=== PATIENT | female | born 1995 | race Caucasian/White ===

== ENCOUNTER 2017-04-05 22:00 | Emergency (ER) | payer SELFPAY ==
[~2017-04-05] VITALS: Ht 170.2 cm; Wt 59.9 kg
[~2017-04-05 22:00] MED LIST: AZIT-21 PO; CETI10TA17 PO; DIVA500T PO; DOXY100C2 PO; FAMO-119 PO; HYDR-3454 PO; LAMO100T PO; LAMO25TA PO; LEVO75TA6 PO; NATALCARE PLUS1 EACH PO; NF-VYVAN20 PO; OMEP20CA12
--- OUTSIDE RECORDS SUMMARY | 2017-04-05 22:07 | XMS REPORT | CCD ---
Author Author Auto Generated Organization [facility] Address Unknown Phone Unavailable Care Team Providers Care Paramedic Instructor Name Role Phone Casimiro Gaspar CP [phone] ContrerasFrancine PP [phone] Allergies, Adverse Reactions, Alerts Substance Reaction Status No Known Adverse Reactions Active Problem List Condition Effective Dates Status Autoimmune hypothyroidism Resolved Medications Medication Instructions Start Date End Date Status clobetasol 0.05% 1 application, Affected Area(s), 04/09/2015 Ordered topical solution BID, Apply a thin film to affected areas Tuesday-Tuesday., # 50 mL, Refill(s) 3, Pharmacy: [facility] Apply a thin film to affected areas Tuesday-Tuesday. Vital Signs Most recent to oldest [Reference Range]: 1 Current Weight 54.7 kg (04/09/2015 13:22:00) Most recent to oldest [Reference Range]: 1 Height/Length 170 cm (04/09/2015 13:22:00) Procedures Procedures Date Related Diagnosis Lymph node biopsy 2014
--- OUTSIDE RECORDS SUMMARY | 2017-04-05 22:07 | XMS REPORT | CCD ---
Author Author Auto Generated Organization [facility] Address Unknown Phone Unavailable Care Team Providers Care Subsurface Augmentee Elint Operator Name Role Phone Casimiro Gaspar CP [phone] Francine Contreras PP [phone] Allergies, Adverse Reactions, Alerts Substance Reaction Status No Known Adverse Reactions Active Problem List Condition Effective Dates Status Autoimmune hypothyroidism Resolved Medications Medication Instructions Start Date End Date Status clobetasol 0.05% 1 application, Affected Area(s), 04/09/2015 Ordered topical solution BID, Apply a thin film to affected areas Tuesday-Tuesday., # 50 mL, Refill(s) 3, Pharmacy: [facility] Apply a thin film to affected areas Tuesday-Tuesday.
--- OUTSIDE RECORDS SUMMARY | 2017-04-05 22:07 | XMS REPORT | CCD ---
Author Author Auto Generated Organization [facility] Address Unknown Phone Unavailable Care Team Providers Care Travel Accommodation Inspector Name Role Phone Mihir Capps CP [phone] Francine Contreras PP [phone] Brandon Cohen RP [phone] Allergies, Adverse Reactions, Alerts Substance Reaction Status No Known Adverse Reactions Active Medications Medication Instructions Start Date End Date Status multivitamin Refill(s) 0 03/19/2015 Ordered Rexulti Rexulti, 0.25 mg, qDay 03/19/2015 Ordered Vyvanse 40 mg oral 40 mg=1 capsule, PO, qAM, Take with 03/19/2015 Ordered capsule food., # 30 capsule, Refill(s) 0 Take with food. potassium chloride 10 mEq=1 tablet, PO, qDay, # 30 03/19/2015 Ordered 10 mEq oral tablet, tablet, Refill(s) 0 extended release traZODone 100 mg 1/2 tablet, PRN, Refill(s) 0 03/19/2015 Ordered oral tablet PRN levothyroxine 75 mcg 75 mcg=1 tablet, PO, qDay, # 30 03/19/2015 Ordered (0.075 mg) oral tablet, Refill(s) 0 tablet
--- OUTSIDE RECORDS SUMMARY | 2017-04-05 22:07 | XMS REPORT | Continuity of Care Document ---
Author Author [employer] Organization [employer] Address Unknown Phone Unavailable Care Team Providers Care Crawler Crane Operator Name Role Phone [employer] Unavailable Unavailable Problems Problem Status Onset Date Classification Date Reported Comments Source Autoimmune hypothyroidism (disorder) Resolved Problem [facility] Medications Medication Details Route Status Patient Instructions Ordering Provider Order Date Source multivitamin Refill(s) 0 [facility] Rexulti Rexulti, 0.25 mg, qDay [facility] Vyvanse 40 mg oral capsule 40 mg=1 capsule, PO, qAM, Take with food., # 30 capsule, Refill(s) 0 Take with food. Active [facility] potassium chloride 10 mEq oral tablet, extended release 10 mEq=1 tablet, PO, qDay, # 30 tablet, Refill(s) 0 [facility] traZODone 100 mg oral tablet 1/2 tablet, PRN, Refill(s ) 0 PRN [facility] levothyroxine 75 mcg (0.075 mg) oral tablet 75 mcg=1 tablet, PO, qDay, # 30 tablet, Refill(s) 0 [facility] clobetasol 0.05% topical solution 1 application, Affected Area(s), BID, Apply a thin film to affected areas Tuesday-Tuesday., # 50 mL, Refill(s) 3, Pharmacy: [facility] 72 Apply a thin film to affected areas Tuesday-Tuesday. [facility] Allergies, Adverse Reactions, Alerts Immunizations Results Order Name Results Value Reference Range Date Interpretation Comments Source Thyrd Ab Thyroid Globulin Ab 25 International Unit/mL 0 - 40 03/20/2015 NA [facility] Thyrd Ab Thyroid Peroxidase Ab 301 International Unit/mL 0 - 35 03/20/2015 [facility] T4 Free T4 Free 1.0 ng/dL 0.8 - 1.9 03/20/2015 [facility] TSH TSH 2.60 mcIU/mL 0.35 - 5.50 03/20/2015 [facility] Sodium 140 mmol/L 135 - 145 03/19/2015 [facility] Potassium 4.0 mmol/L 3.5 - 5.2 03/19/[address] [facility] Chloride 101 mmol/L 99 - 112 03/19/2015 [facility] Carbon Dioxide 28 mmol /L 20 - 30 03/19/2015 [facility] Anion Gap 11 mmol/L 7 - 14 03/19/2015 [facility] Calcium 9.3 mg/dL 8.6 - 10.5 03/19/2015 [facility] Glucose 81 mg/dL 65 - 110 03/19/2015 [facility] BUN 12 mg/dL 5 - 20 03/19/2015 [facility] Creatinine .58 mg/dL .35 - .84 03/19/2015 [facility] Vital Signs Vital Sign Value Date Comments Source Current Weight 54.7 kg 2015 [facility] Height/Length 170 cm 2015 [facility] Encounters Location Location Details Encounter Type Encounter Number Reason For Visit Attending Provider ADM Date DC Date Status Source [facility] REF [id number] Mihir Capps 03/19/20152015 [facility] CMB CMB CLI [id number] Casimiro aGspar 04/09/2015 04/09/2015 Active [facility] Procedures Plan of Care Social History Assessment and Plan Family History Advance Directives Functional Status
--- OUTSIDE RECORDS SUMMARY | 2017-04-05 22:08 | XMS REPORT | Continuity of Care Document ---
Author Author [facility] Address Unknown Phone Unavailable Allergies Active Description Code Type Severity Reaction Onset Reported/Identified Relationship to Patient Clinical Status Yes No Known Drug Allergies [id number] Drug Allergy Unknown N/A 09/01/2009 Medications There is no data. Problems Date Dx Coded Attending Type Code Diagnosis Diagnosed By 12/10/2008 FERNANDO MCINTYRE MD 488.0 INFLUENZA A 12/10/2008 GUSTAVO SANCHEZ APRN 488.0 INFLUENZA A 12/10/2008 MASSIEL AUSTIN, MELANY Egan 488.0 INFLUENZA A 12/10/2008 MASSIEL AUSTIN, MELANY L 488.0 INFLUENZA A 02/26/2009 FERNANDO MCINTYRE MD 530.81 Esophageal Reflux 02/26/2009 GUSTAVO SANCHEZ APRN A 530.81 Esophageal Reflux 02/26/2009 MASSIEL AUSTIN, MELANY L 530.81 Esophageal Reflux 02/26/2009 PADMINI RANKIN APRNNYA L 530.81 Esophageal Reflux 03/11/2009 FRANCISCO JAVIER BENTON, FERNANDO V03.89 Meningococcal, Other Specified Single Bacterial Disease 03/11/2009 FRANCISCO JAVIER BENTON, FERNANDO V05.4 Varicella, Chickenpox 03/11/2009 FRANCISCO JAVIER BENTON, FERNANDO V05.8 Gardasil 03/11/2009 FRANCISCO JAVIER BENTON, FERNANDO V06.5 Dt, Tetanus-diphtheria [td] ,tdap 03/11/2009 FRANCISCO JAVIER BENTON, FERNANDO V20.2 Preventive Medicine New Patient Evaluation Childhood 5-11 03/11/2009 GUSTAVO SANCHEZ APRN V03.89 Meningococcal, Other Specified Single Bacterial Disease 03/11/2009 GUSTAVO SANCHEZ APRN V05.4 Varicella, Chickenpox 03/11/2009 GUSTAVO SANCHEZ APRN A V05.8 Gardasil 03/11/2009 GUSTAVO SANCHEZ APRN A V06.5 Dt, Tetanus-diphtheria [td] ,tdap 03/11/2009 LAURA APRN, GUSTAVO A V20.2 Preventive Medicine New Patient Evaluation Childhood 5-11 03/11/2009 MADL LUMBER TAILER, MELANY L V03.89 Meningococcal, Other Specified Single Bacterial Disease 03/11/2009 MADL LUMBER TAILER, MELANY L V05.4 Varicella, Chickenpox 03/11/2009 MADL LUMBER TAILER, MELANY L V05.8 Gardasil 03/11/2009 MADL LUMBER TAILER, MELANY L V06.5 Dt, Tetanus-diphtheria [td] ,tdap 03/11/2009 MADL LUMBER TAILER, MELANY L V20.2 Preventive Medicine New Patient Evaluation Childhood 5-11 03/11/2009 MADL LUMBER TAILER, MELANY L V03.89 Meningococcal, Other Specified Single Bacterial Disease 03/11/2009 MADL LUMBER TAILER, MELANY L V05.4 Varicella, Chickenpox 03/11/2009 MADL LUMBER TAILER, MELANY L V05.8 Gardasil 03/11/2009 MADL LUMBER TAILER, MELANY L V06.5 Dt, Tetanus-diphtheria [td] ,tdap 03/11/2009 MADL LUMBER TAILER, MELANY L V20.2 Preventive Medicine New Patient Evaluation Childhood 5-11 09/01/2009 Ot 813.42 09/01/2009 Ot 959.3 09/01/2009 Ot E000.8 09/01/2009 Ot E849.0 09/01/2009 Ot E884.9 09/09/2009 FERNANDO MCINTYRE MD 493.90 ASTHMA, UNSPECIFIED, UNSPECIFIED 09/09/2009 GUSTAVO SANCHEZ APRN A 493.90 ASTHMA, UNSPECIFIED, UNSPECIFIED 09/09/2009 NARINDER RANKIN APRNA L 493.90 ASTHMA, UNSPECIFIED, UNSPECIFIED 09/09/2009 MASSIEL AUSTIN, MELANY L 493.90 ASTHMA, UNSPECIFIED, UNSPECIFIED 11/18/2009 FERNANDO MCINTYRE MD 477.9 ALLERGIC RHINITIS CAUSE UNSPECIFIED 11/18/2009 GUSTAVO SANCHEZ APRN 477.9 ALLERGIC RHINITIS CAUSE UNSPECIFIED 11/18/2009 NARINDER RANKIN APRNA L 477.9 ALLERGIC RHINITIS CAUSE UNSPECIFIED 11/18/2009 DONNIENARINDER Egan APRNA L 477.9 ALLERGIC RHINITIS CAUSE UNSPECIFIED 05/28/2010 Ot 845.00 05/28/2010 Ot 959.7 05/28/2010 Ot E000.8 05/28/2010 Ot E849.0 05/28/2010 Ot E928.9 09/22/2010 FERNANDO MCINTYRE MD V05.3 Hep A (ped/adol 2-dose) Dx 09/22/2010 GUSTAVO SANCHEZ APRN A V05.3 Hep A (ped/adol 2-dose) Dx 09/22/2010 MELANY RANKIN APRN L V05.3 Hep A (ped/adol 2-dose) Dx 09/22/2010 NARINDER RANKIN APRNA L V05.3 Hep A (ped/adol 2-dose) Dx 06/22/2011 FERNANDO MCINTYRE MD 719.47 PAIN IN JOINT INVOLVING ANKLE AND FOOT 06/22/2011 FERNANDO MCINTYRE MD 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 06/22/2011 GUSTAVO SANCHEZ APRN A 719.47 PAIN IN JOINT INVOLVING ANKLE AND FOOT 06/22/2011 CASSIDY SANCHEZ APRNIDI A 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 06/22/2011 PADMINI RANKIN APRNNYA L 719.47 PAIN IN JOINT INVOLVING ANKLE AND FOOT 06/22/2011 FISH RANKIN APRNWNYA L 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 06/22/2011 FISH RANKIN APRNWNYA L 719.47 PAIN IN JOINT INVOLVING ANKLE AND FOOT 06/22/2011 MASSIEL AUSTIN MELANY L 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 12/22/2011 FERNANDO MCINTYRE MD 333.94 RESTLESS LEGS SYNDROME (RLS) 12/22/2011 GUSTAVO SANCHEZ APRN A 333.94 RESTLESS LEGS SYNDROME (RLS) 12/22/2011 NARINDER RANKIN APRNA L 333.94 RESTLESS LEGS SYNDROME (RLS) 12/22/2011 NARINDER RANKIN APRNA L 333.94 RESTLESS LEGS SYNDROME (RLS) 12/28/2011 FERNANDO MCINTYRE MD 708.9 UNSPECIFIED URTICARIA 12/28/2011 GUSTAVO SANCHEZ APRN A 708.9 UNSPECIFIED URTICARIA 12/28/2011 MELANY RANKIN APRN L 708.9 UNSPECIFIED URTICARIA 12/28/2011 MELANY RANKIN APRN L 708.9 UNSPECIFIED URTICARIA 01/26/2012 Ot 719.47 01/26/2012 Ot 727.81 01/26/2012 Ot 734 01/26/2012 Ot V57.1 09/05/2012 GUSTAVO SANCHEZ APRN A 704.00 ALOPECIA UNSPECIFIED 09/05/2012 GUSTAVO SANCHEZ APRN A V04.89 GARDASIL (HPV) DX 09/05/2012 GUSTAVO SANCHEZ APRN A V70.3 OTHER GENERAL MEDICAL EXAMINATION FOR ADMINISTRATIVE PURPOSES 09/05/2012 MELANY RANKIN APRN L 704.00 ALOPECIA UNSPECIFIED 09/05/2012 NARINDER RANKIN APRNA L V04.89 GARDASIL (HPV) DX 09/05/2012 NARINDER RANKIN APRNA L V70.3 OTHER GENERAL MEDICAL EXAMINATION FOR ADMINISTRATIVE PURPOSES 09/05/2012 NARINDER RANKIN APRNA L 704.00 ALOPECIA UNSPECIFIED 09/05/2012 NARINDER RANKIN APRNA L V04.89 GARDASIL (HPV) DX 09/05/2012 PADMINI RANKIN APRNNYA L V70.3 OTHER GENERAL MEDICAL EXAMINATION FOR ADMINISTRATIVE PURPOSES 01/24/2013 GUSTAVO SANCHEZ APRN A 626.4 IRREGULAR MENSTRUAL CYCLE 01/24/2013 LAURA AUSTIN GUSTAVO A V25.01 CONTRACEPTION - ORAL CONTRACEPTION 01/24/2013 NARINDER RANKIN APRNA L 626.4 IRREGULAR MENSTRUAL CYCLE 01/24/2013 PADMINI RANKIN APRNNYA L V25.01 CONTRACEPTION - ORAL CONTRACEPTION 01/24/2013 PADMINI RANKIN APRNNYA L 626.4 IRREGULAR MENSTRUAL CYCLE 01/24/2013 FISH RANKIN APRNWNYA L V25.01 CONTRACEPTION - ORAL CONTRACEPTION 08/08/2013 NARINDER RANKIN APRNA L 701.9 UNSPECIFIED HYPERTROPHIC AND ATROPHIC CONDITIONS OF SKIN 08/08/2013 MELANY RANKIN APRN L 780.79 OTHER MALAISE AND FATIGUE 08/08/2013 MELANY RANKIN APRN L 789.06 ABDOMINAL PAIN EPIGASTRIC 08/08/2013 MELANY RANKIN APRN L 701.9 UNSPECIFIED HYPERTROPHIC AND ATROPHIC CONDITIONS OF SKIN 08/08/2013 MELANY RANKIN APRN L 780.79 OTHER MALAISE AND FATIGUE 08/08/2013 MELANY RANKIN APRN L 789.06 ABDOMINAL PAIN EPIGASTRIC 08/13/2013 JAY BENTON, JAMES Le Ot 789.06 05/20/2014 MARY LOU ENAMORADO Ot 462 05/20/2014 MARY LOU ENAMORADO Ot 785.6 10/17/2014 RENNY CUADRA MD Ot 709.9 10/17/2014 RENNY CUADRA MD Ot 785.6 10/17/2014 RENNY CUADRA MD Ot V72.84 10/24/2014 RENNY CUADRA MD Ot 216.4 JUANITO PATTIE SCALP/SKIN NECK 10/24/2014 RENNY CUADRA MD Ot 785.6 ENLARGEMENT LYMPH NODES 10/25/2014 RENNY CUADRA MD Ot 709.9 10/25/2014 RENNY CUADRA MD Ot 785.6 10/25/2014 RENNY CUADRA MD Ot V72.84 11/08/2014 KENNY GOODE MD Ot 348.0 11/08/2014 KENNY GOODE MD Ot 780.4 11/08/2014 KENNY GOODE MD Ot 784.0 07/25/2015 RENNY CUADRA MD Ot 216.4 JUANITO PATTIE SCALP/SKIN NECK 07/25/2015 RENNY CUADRA MD Ot 785.6 ENLARGEMENT LYMPH NODES Procedures Code [place] [address] ROUTINE VENIPUNCTURE 12/22/2011 Physical Physical Therapy, [facility] 12/22/2011 Podiatry Dimple Pierce 12/22/2011 43814 FERRITIN 12/24/2011 89487 ROUTINE VENIPUNCTURE 08/08/2013 78314 TSH 08/08/2013 06009 CBC 08/08/2013 97272 T4 FREE 08/13/2013 33910 T3 TOTAL 08/13/2013 Results There is no data. Encounters ACCT No. Visit Date/Time Discharge Status Pt. Type Provider Facility Loc./Unit Complaint [id number] 08/13/2013 11:08:00 08/13/2013 23:59:59 CLS Outpatient MELANY RANKIN APRN [id number] 08/08/2013 11:10:00 08/08/2013 23:59:59 CLS Outpatient MELANY RANKIN APRN [id number] 01/24/2013 16:03:00 01/24/2013 23:59:59 CLS Outpatient GUSTAVO SANCHEZ APRN [id number] 12/22/2011 16:02:00 12/22/2011 23:59:59 CLS Outpatient FERNANDO MCINTYRE MD [id number] 10/25/2014 12:45:00 10/25/2014 23:59:59 CLS Outpatient KENNY GOODE MD [facility] [id number] 10/24/2014 06:44:00 10/24/2014 10:35:00 DIS Outpatient RENNY CUADRA MD [facility] [id number] 10/16/2014 05:40:00 10/16/2014 23:59:59 CLS Outpatient RENNY CUADRA MD [facility] PREOP [id number] 05/20/2014 20:56:00 05/20/2014 22:49:00 DIS Emergency MARY LOU ENAMORADO [facility] ER [id number] 08/13/2013 15:58:00 08/13/2013 17:35:00 DIS Emergency JAMES THOMPSON MD [facility] ER [id number] 05/20/2014 20:56:00 Document Registration [id number] 05/28/2010 10:10:00 Document Registration [id number] 09/01/2009 20:10:00 Document Registration
[2017-04-05] MEDS ORDERED: BIRTH CONTROL PO (22:10)
--- NOTE | 2017-04-05 22:32 | ED General ---
General Chief Complaint: General Problems/Pain Stated Complaint: SWOLLEN LYMPNODES, TIRED, SOB, NAUSEA Nursing Triage Note: BODY ACHE, FATIGUE, SWOLLEN LYMPH NODES X3 DAYS Source of Information: Patient, Other (friend) Exam Limitations: No Limitations History of Present Illness Date Seen by Provider: Apr 05, 2017 Time Seen by Provider: 22:31 Initial Comments 21-year-old female patient presents to the emergency Department with reports of generalized body aches, fatigue, swollen lymph nodes for 3 days. Does complain of rhinorrhea, nasal congestion, cough, clear sputum, and sore throat. Timing/Duration: 2-3 Days, Constant Modifying Factors: worse with Other (lymph node tenderness worse with palpation ) Allergies and Home Medications Allergies Coded Allergies: No Known Drug Allergies (Unverified , 09/01/09) Home Medications Cefdinir 300 Mg Capsule, 300 MG PO BID Prescribed by: MARY LOU WARD on 04/05/172333 Ondansetron 8 Mg Tab.rapdis, 8 MG PO Q6H PRN for NAUSEA/VOMITING-1ST LINE Prescribed by: MARY LOU WARD on 04/05/17 233 Phenazopyridine HCl 200 Mg Tablet, 1 TAB PO Q8H PRN for SPASMS Prescribed by: MARY LOU WARD on 04/05/17 2334 [ Control] , 1 TAB PO UD, (Reported) Constitutional: chills, No fever, malaise EENTM: see HPI Respiratory: see HPI, cough, phlegm, No short of breath, No wheezing ( occasional wheezing. Denies current wheezing. Does have a history of asthma.) Cardiovascular: no symptoms reported Gastrointestinal: no symptoms reported Genitourinary: No decreased output, No discharge, dysuria, frequency, No hematuria, No pain : No Musculoskeletal: other (generalized body aches) Skin: no symptoms reported Psychiatric/Neurological: No Symptoms Reported All Other Systems Reviewed Negative Unless Noted: Yes (Negative excepted noted.) Past Afbfgcm-Ffxloa-Qbbrte Hx Patient Social History Alcohol Use: Denies Use Recreational Drug Use: No Smoking Status: Never a Smoker 2nd Hand Smoke Exposure: No Recent Foreign Travel: No Contact w/Someone Who Travel: No Recent Infectious Disease Expo: No Recent Hopitalizations: No Seasonal Allergies Seasonal Allergies: No Surgeries History of Surgeries: Yes (LYMPH NODE BX) Surgeries: Adenoidectomy, Tonsillectomy Respiratory History of Respiratory Disorde: Yes Respiratory Disorders: Asthma (history of asthma as a child) Cardiovascular History of Cardiac Disorders: No Neurological History of Neurological Disord: No Reproductive System Hx Reproductive Disorders: No Sexually Transmitted Disease: No HIV/AIDS: No Female Reproductive Disorders: Denies Genitourinary History of Genitourinary Disor: No Gastrointestinal History of Gastrointestinal Di: Yes Gastrointestinal Disorders: Gastroesophageal Reflux, Chronic Constipation Musculoskeletal History of Musculoskeletal Dis: Yes Musculoskeletal Disorders: Scoliosis Endocrine History of Endocrine Disorders: No Endocrine Disorders: Hypothyroidsim HEENT Loss of Vision: Denies Cancer History of Cancer: No Psychosocial History of Psychiatric Problem: Yes Behavioral Health Disorders: ADD/ADHD, Anxiety, Bipolar, Depression Integumentary History of Skin or Integumenta: No Blood Transfusions History of Blood Disorders: No Adverse Reaction to a Blood Tr: No Reviewed Nursing Assessment Reviewed/Agree w Nursing PMH: Yes Family Medical History Significant Family History: No Pertinent Family Hx Physical Exam Vital Signs Vital Signs - First Documented 04/05/17 22:11 Temp 96.8 Pulse 93 Resp 18 B/P (MAP) 149/95 O2 Delivery Room Air Capillary Refill : General Appearance: No Apparent Distress, WD/WN HEENT: PERRL/EOMI, TMs Normal, Pharyngeal Erythema, Other (positive nasal congestion.) Neck: Full Range of Motion, Supple, Other (anterior and posterior cervical lymphadenopathy with tenderness to palpation. Left greater than right.) Respiratory: Lungs Clear, Normal Breath Sounds, No Accessory Muscle Use, No Respiratory Distress Cardiovascular: Regular Rate, Rhythm, No Edema, No Murmur, Normal Peripheral Pulses Gastrointestinal: Normal Bowel Sounds, No Organomegaly, Soft, No Distended, No Guarding, No Rebound, Tenderness (mild suprapubic tenderness.) Back: Normal Inspection, No CVA Tenderness Extremity: Normal Capillary Refill, Normal Inspection Neurologic/Psychiatric: Alert, Oriented x3, Normal Mood/Affect Skin: Normal Color, Warm/Dry Progress/Results/Core Measures Suspected Sepsis SIRS Temperature:96.8 Pulse: Respiratory Rate: Blood Pressure / Mean: Results/Orders Lab Results Laboratory Tests Test 04/05/17 22:18 04/05/17 22:45 Range/Units Group A Streptococcus Screen NEGATIVE NEGATIVE Urine Color YELLOW Urine Clarity VERY CLOUDY H Urine pH 6.5 5-9 Urine Specific [place] 1.010 L 1.016-1.022 Urine Protein NEGATIVE NEGATIVE Urine Glucose (UA) NEGATIVE NEGATIVE Urine Ketones NEGATIVE NEGATIVE Urine Nitrite POSITIVE H NEGATIVE Urine Bilirubin NEGATIVE NEGATIVE Urine Urobilinogen NORMAL NORMAL MG/DL Urine Leukocyte Esterase 2+ H NEGATIVE Urine RBC (Auto) 1+ H NEGATIVE Urine RBC 0-2 /HPF Urine WBC 25-50 H /HPF Urine Squamous Epithelial Cells 2-5 /HPF Urine Crystals NONE /LPF Urine Bacteria LARGE H /HPF Urine Casts NONE /LPF Urine Mucus NEGATIVE /LPF Urine Culture Indicated YES Micro Results Microbiology 04/05/17 Influenza Types A,B Antigen (BREE) - Final, Complete My Orders Orders - MARY LOU WARD Rapid Strep A Screen (04/05/17 22:23) Influenza A And B Antigens (04/05/17 22:23) Ua Culture If Indicated (04/05/17 22:49) Urine Bedside (04/05/17 22:49) Urine Culture (04/05/17 22:45) Ibuprofen Tablet (Motrin Tablet) (04/05/17 23:16) Phenazopyridine Tablet (Pyridium Tablet) (04/05/17 23:16) Ceftriaxone Injection (Rocephin Injectio (04/05/17 23:30) Lidocaine 1% Injection (Xylocaine 1% Inj (04/05/17 23:30) Lidocaine 1% (Xylocaine 1%) (04/05/17 23:22) Medications Given in ED Current Medications Medications Dose Ordered Sig/Brianna Route Start Time Stop Time Status Last Admin Dose Admin Ceftriaxone Sodium 1,000 mg ONCE ONCE IM 04/05/17 23:30 04/05/17 23:31 DC 04/05/17 23:31 1,000 MG Lidocaine HCl 50 ml STK-MED ONCE .ROUTE 04/05/17 23:22 04/05/17 23:26 DC 04/05/17 23:32 50 ML Vital Signs/I&O Vital Sign - Last 12Hours 04/05/17 04/05/17 22:11 23:31 Temp 96.8 96.8 Pulse 93 Resp 18 B/P (MAP) 149/95 O2 Delivery Room Air Capillary Refill : Departure Communication (Admissions) Progress Notes Laboratory findings discussed with the patient. Plan for discharge to home after giving 1 g Rocephin, Pyridium 100 mg by mouth, and ibuprofen 800 mg by mouth. Impression Impression: Primary Impression: Urinary tract infection Additional Impression: Viral upper respiratory infection Disposition: 01 HOME, SELF-CARE Condition: Improved Departure-Patient Inst. Decision time for Depature: 23:16 Referrals: [facility] (PCP) Primary Care Physician MATEUSZ MAYA MD (Family) Primary Care Physician Patient Instructions: Viral Upper Respiratory Infection, Adult (DC), Urinary Tract Infection, Adult (DC) Add. Discharge Instructions: All discharge instructions reviewed with patient and/or family. Voiced understanding. Medications as instructed. Tylenol Extra Strength over-the- counter as directed for pain. Ibuprofen 800 mg by mouth every 8 hours as needed for pain. Drink plenty of fluids. Vwoc-tyi-ovuiucz decongestants, antihistamines, and cough suppressants as needed for symptoms. Follow-up with [facility] for recheck if needed. Return to the emergency department for worsened symptoms or any other concerns. Scripts Ondansetron (Ondansetron Odt) 8 Mg Tab.rapdis 8 MG PO Q6H Y for NAUSEA/VOMITING-1ST LINE, #10 TAB 0 Refills Prov: MARY LOU WARD 04/05/17 Phenazopyridine HCl (Pyridium) 200 Mg Tablet 1 TAB PO Q8H Y for SPASMS, #14 TAB 0 Refills Prov: MARY LOU WARD 04/05/17 Cefdinir (Cefdinir) 300 Mg Capsule 300 MG PO BID, #10 CAP 0 Refills Prov: MARY LOU WARD 04/05/17 Work/School Note: Work Release Form Date Seen in the Emergency Department: Apr 05, 2017 Return to Work: Apr 07, 2017 MARY LOU WARD Apr 05, 2017 22:32
[2017-04-05 22:57] LABS: BILIRUBIN,URINE NEGATIVE (NEGATIVE); CLARITY,URINE VERY CLOUDY; COLOR,URINE YELLOW; GLUCOSE, URINE (UA) NEGATIVE (NEGATIVE); KETONES,URINE NEGATIVE (NEGATIVE); LEUKOCYTE ESTERASE ,URINE 2+ (NEGATIVE); NITRITE,URINE POSITIVE (NEGATIVE); PH,URINE 6.5 (5-9); PROTEIN,URINE NEGATIVE (NEGATIVE); UROBILINOGEN,URINE NORMAL (NORMAL)
[2017-04-05 23:12] LABS: BACTERIA,URINE LARGE /HPF; RBC,URINE 0-2 /HPF; WBC,URINE 25-50 /HPF
[2017-04-05] MEDS ORDERED: PHENAZOPYRIDINE 100 MG (PYRIDIUM) TABLET PO STA (23:16)
[2017-04-05] MEDS ORDERED: IBUPROFEN 800 MG (MOTRIN) TAB PO STA (23:16)
[2017-04-05] MEDS ORDERED: LIDOCAINE 1% INJ 50 ML (XYLOCAINE) VIAL ONE (23:22)
[2017-04-05] MEDS ORDERED: cefTRIAXone 1 GM (ROCEPHIN) VIAL IM ONE (23:30)
[2017-04-05] MEDS ORDERED: LIDOCAINE 1% INJ 20 ML (XYLOCAINE) VIAL INJ ONE (23:30)
[2017-04-05] MEDS ORDERED: CEFD300C3 PO (23:34)
[2017-04-05] MEDS ORDERED: PHEN-640 PO (23:34)
[2017-04-05] MEDS ORDERED: ONDA8TAB13 PO (23:34)
[2017-04-05 23:40] VITALS: BP 132/99
== END 2017-04-05 23:40 | disposition home or self-care (01) ==
LOC: EDUNIT# 22:00 → ER 22:03
DX: N39.0 Urinary tract infection, site not specified (principal); J06.9 Acute upper respiratory infection, unspecified; F41.9 Anxiety disorder, unspecified; F31.9 Bipolar disorder, unspecified; F90.9 Attention-deficit hyperactivity disorder, unspecified type; E03.9 Hypothyroidism, unspecified; K21.9 Gastro-esophageal reflux disease without esophagitis; J45.909 Unspecified asthma, uncomplicated; Z90.89 Acquired absence of other organs
CPT/HCPCS: 81000; 84703; 87077; 87088; 87186; 87430; 87804; 96372; 99284